=== PATIENT | male | born 1955 | race Caucasian/White ===

== ENCOUNTER 2021-01-06 08:28 | Emergency (ER) | payer OTHER ==
[~2021-01-06 08:28] MED LIST: MEDROL 4MG DOSEP4 MG PO; MOTRIN600 MG PO; ROBAXIN750 MG PO
[2021-01-06 10:03] LABS: BASOPHIL 0.4 % (0-2); EOSINOPHIL 0 % (0-5); HGB 14.4 g/dl (13.2-18.0); LYMPHOCYTE 25.1 % (15-48); MCH 29.5 pg (25.0-31.0); MCHC 32.7 g/dL (32.0-36.0); MCV 90.2 fL (78.0-100.0); MPV 9.6 fL (6.0-9.5); NEUTROPHIL 58.1 % (41-80); NRBC 0; PLT 146 K/uL (150-400); RBC 4.88 M/uL (4.70-6.00); RDW 14.8 % (11.5-14.0); WBC 2.8 K/uL (4.0-10.5)
[2021-01-06 10:34] LABS: CREATININE 1.24 mg/dL (0.67-1.17)
[2021-01-06 10:35] LABS: POTASSIUM 4.4 mmol/L (3.5-5.1)
[2021-01-06 11:03] LABS: CORONAVIRUS 2019 SARS-COV-2 POSITIVE (NEGATIVE); INFLUENZA A NAA NEGATIVE (NEGATIVE)
[2021-01-06] MEDS ORDERED: MEDROL 4MG DOSEP4 MG PO (11:25)
== END 2021-01-06 13:58 | disposition home or self-care (01) ==
LOC: FER 08:28
PROVIDERS: Emergency Medicine
DX: U07.1 COVID-19 (principal); I10 Essential (primary) hypertension; J44.9 Chronic obstructive pulmonary disease, unspecified; Z79.899 Other long term (current) drug therapy
CPT/HCPCS: 36415; 71045; 80048; 85025; J7050; M0239; U0002

== ENCOUNTER 2021-01-12 12:13 | Emergency (ER) | payer OTHER ==
[2021-01-12] MEDS ORDERED: TRAMADOL HCL50 MG PO (14:40)
== END 2021-01-12 15:05 | disposition home or self-care (01) ==
LOC: FER 12:13
DX: U07.1 COVID-19 (principal); I10 Essential (primary) hypertension; J44.9 Chronic obstructive pulmonary disease, unspecified
CPT/HCPCS: 99283; J1885

== ENCOUNTER → 2022-01-27 | Day surgery (SDC) | payer OTHER ==
[~2022-01-27] VITALS: Ht 182.9 cm; Wt 83.9 kg
[~2022-01-27] MED LIST changes: +ANORO ELLIPTA1 EACH INH; +LANSOPRAZOLE30 MG PO; +LEVOTHYROXINE50 MCG PO; +LISINOPRIL-HCT1 EAC1 PO; +LOVAZA1 GM PO; +PRAVASTATIN SOD80 MG PO; +PROVENTIL HFA6.7 GM INH; +TRAMADOL HCL50 MG PO; +VITAMIN D PO
[2022-01-27 08:19] LABS: HCT 50.2 % (42.0-52.0); HGB 16.8 g/dl (13.2-18.0); MCH 29.7 pg (25.0-31.0); MCHC 33.5 g/dL (32.0-36.0); MCV 88.7 fL (78.0-100.0); MPV 9.8 fL (6.0-9.5); RBC 5.66 M/uL (4.70-6.00); RDW 14.6 % (11.5-14.0)
[2022-01-27 08:34] LABS: ALBUMIN 4.4 g/dL (3.4-5.0); BILIRUBIN - TOTAL 0.9 mg/dL (0.2-1.0); BUN/CREAT RATIO (CALC) 11.9 RATIO; CREATININE 2.02 mg/dL (0.67-1.17); GLOBULIN (CALCULATION) 4.1 g/dL; TOTAL PROTEIN 8.5 g/dL (6.4-8.2)
== END | disposition home or self-care (01) ==
LOC: FAS 07:25
PROVIDERS: Surgery
DX: K31.9 Disease of stomach and duodenum, unspecified (principal); K21.00 Gastro-esophageal reflux disease with esophagitis, without bleeding; K58.9 Irritable bowel syndrome, unspecified; N40.2 Nodular prostate without lower urinary tract symptoms; J44.9 Chronic obstructive pulmonary disease, unspecified; I10 Essential (primary) hypertension; E78.5 Hyperlipidemia, unspecified; E03.9 Hypothyroidism, unspecified; Z79.899 Other long term (current) drug therapy
CPT/HCPCS: 36415; 80053; J0690; J2704; J7120

== ENCOUNTER → 2022-03-19 | Day surgery (SDC) | payer OTHER ==
[~2022-03-19] VITALS: Ht 182.9 cm; Wt 83.9 kg
[~2022-03-19] MED LIST changes: +NORCO 5-325 TA1 EACH PO; +ONDANSETRON ODT8 MG PO
[2022-03-19 08:14] LABS: HCT 46.1 % (42.0-52.0); HGB 15.7 g/dl (13.2-18.0); MCH 30.6 pg (25.0-31.0); MCHC 34.1 g/dL (32.0-36.0); MCV 89.9 fL (78.0-100.0); MPV 9.3 fL (6.0-9.5); RBC 5.13 M/uL (4.70-6.00); RDW 14.4 % (11.5-14.0); WBC 7.6 K/uL (4.0-10.5)
[2022-03-19 08:45] LABS: ALBUMIN 3.9 g/dL (3.4-5.0); BILIRUBIN - TOTAL 0.6 mg/dL (0.2-1.0); BUN/CREAT RATIO (CALC) 15.2 RATIO; CREATININE 1.05 mg/dL (0.67-1.17); GLOBULIN (CALCULATION) 3.7 g/dL; POTASSIUM 4.1 mmol/L (3.5-5.1); TOTAL PROTEIN 7.6 g/dL (6.4-8.2)
== END | disposition home or self-care (01) ==
LOC: FAS 07:26
PROVIDERS: Surgery
DX: K80.10 Calculus of gallbladder with chronic cholecystitis without obstruction (principal); K66.0 Peritoneal adhesions (postprocedural) (postinfection); J44.9 Chronic obstructive pulmonary disease, unspecified; I10 Essential (primary) hypertension; E78.5 Hyperlipidemia, unspecified; Z96.659 Presence of unspecified artificial knee joint
CPT/HCPCS: 36415; 74300; 76000; 80053; 93005; C1758; J1885; J2405; J2704; J2710; J3010; J7120; Q9967